=== PATIENT | male | born 1975 | race Caucasian/White ===

== ENCOUNTER 2017-05-20 14:34 | Emergency (ER) | payer SELFPAY ==
[~2017-05-20] VITALS: Ht 177.8 cm; Wt 100.0 kg
[2017-05-20 14:36] VITALS: BP 170/104; PULSE 121; RESP 16; TEMP 98.8; O2SAT 96
--- NOTE | 2017-05-20 14:41 | PD ---
HPI Chief Complaint: Musculoskeletal Complaint Time Seen by Provider: 14:40 Travel History International Travel<30 days: No Contact w/Intl Traveler<30days: No Traveled to known affect area: No History of Present Illness HPI 42-year-old male presents for specimen for evaluation of bilateral foot pain. Patient states that he has history of gout and this is very similar to previous exacerbations. Recalls no injury. Pain began yesterday but today it is severe. She states it's primarily around the first MCP of each foot and radiates to the plantar surface. Pain is made out of 10. No fever or chills. No other symptoms to report. PFSH Past Medical History Gout: Yes Social History Alcohol Use: No Tobacco Use: No Substance Use: No Allergies-Medications (Allergen,Severity, Reaction): Coded Allergies: No Known Allergies (Unverified , 05/20/17) Reported Meds & Prescriptions Reported Meds & Active Scripts Active Naproxen 500 Mg Tab 500 Mg PO BID PRN Review of Systems Except as stated in HPI: all other systems reviewed are Neg Physical Exam Narrative GENERAL: Well-nourished, well-developed male patient, no acute distress SKIN: Focused skin assessment warm/dry. Mild erythema around the first MCP joint of the right foot. No induration. No fluctuation. Tenderness with palpation of the bilateral first MCP joints. HEAD: Normocephalic. EYES: No scleral icterus. No injection or drainage. NECK: Supple, trachea midline. No JVD or lymphadenopathy. CARDIOVASCULAR: Tachycardic rate and rhythm without murmurs, gallops, or rubs. RESPIRATORY: Breath sounds equal bilaterally. No accessory muscle use. MUSCULOSKELETAL: No cyanosis, or edema. BACK: Nontender without obvious deformity. No CVA tenderness. Data Data Last Documented VS Vital Signs Date Time Temp Pulse Resp B/P (MAP) Pulse Ox O2 Delivery O2 Flow Rate FiO2 05/20/17 14:36 98.8 121 16 170/104 (126) 96 Orders Orders Ketorolac Inj (Toradol Inj) (05/20/17 14:45) Ed Discharge Order (05/20/17 14:45) [facility] Medical Decision Making Medical Screen Exam Complete: Yes Emergency Medical Condition: Yes Medical Record Reviewed: Yes Differential Diagnosis Pseudogout versus acute gout arthritis versus cellulitis versus osteoarthritis Narrative Course 42-year-old male presents for evaluation of bilateral foot pain consistent with previous gout exacerbations. Patient is tachycardic but he isn't quite amount of pain. With history of gout with similar symptoms, further emergent workup is not indicated at this time. Patient is treated with Toradol. Upon reassessment, patient's heart rate has decreased to 104 bpm. He states his pain is much improved. He'll be started on naproxen outpatient and encouraged follow-up with primary care provider. He agrees to return immediately with any acute worsening of symptoms. Diagnosis Primary Impression: Bilateral foot pain Additional Impression: Exacerbation of gout Referrals: Primary Care Physician Patient Instructions: General Instructions, Gout (ED) Additional Instructions: Elevate to reduce pain Follow-up with a primary care provider Return immediately to the emergency department with any acute worsening symptoms Med/Other Pt SpecificInfo: Prescription(s) given Scripts Naproxen (Naproxen) 500 Mg Tab 500 MG PO BID Y for PAIN SCALE 1 TO 10, #30 TAB 0 Refills Prov: Ann Marie Patricia 05/20/17 Disposition: 01 DISCHARGE HOME Condition: Stable Ann Marie Patricia May 20, 2017 14:41
[2017-05-20] MEDS ORDERED: KETOROLAC TROMETHAMINE 60 MG/2 ML (IM) VIAL IM ONE (14:45)
[2017-05-20] MEDS ORDERED: NAPR500T2 PO (14:47)
== END 2017-05-20 15:34 | disposition home or self-care (01) ==
LOC: PHEFT 14:34
DX: M79.672 Pain in left foot (principal); M79.671 Pain in right foot; M10.9 Gout, unspecified
CPT/HCPCS: 96372; 99284; J1885

== ENCOUNTER 2017-08-17 10:46 | Emergency (ER) | payer SELFPAY ==
[~2017-08-17] VITALS: Ht 177.8 cm; Wt 100.7 kg
[~2017-08-17 10:46] MED LIST: NAPR500T2 PO
[2017-08-17 10:53] VITALS: BP 171/98; PULSE 107; RESP 16; TEMP 98.7; O2SAT 96
[2017-08-17] MEDS ORDERED: ALPR.5 PO (10:59)
[2017-08-17] MEDS ORDERED: AZIT250T3 PO (11:27)
[2017-08-17] MEDS ORDERED: BENZ100 PO (11:27)
[2017-08-17] MEDS ORDERED: PRED20 PO (11:27)
[2017-08-17] MEDS ORDERED: ALBUAER3 INH (11:27)
--- NOTE | 2017-08-17 11:28 | PD ---
HPI Chief Complaint: Cold / Flu Symptoms Time Seen by Provider: 11:09 Travel History International Travel<30 days: No Contact w/Intl Traveler<30days: No Traveled to known affect area: No History of Present Illness HPI This is a 42-year-old male here with productive cough 2 weeks. He reports history of bronchitis and sent similar symptoms in the past. He reports occasional wheezing with coughing episodes. Denies chest pain or persistent shortness of breath. Symptom severity is moderate. No aggravating factors. Albuterol inhaler slightly improved symptoms. PFSH Past Medical History Medical History: Denies Significant Hx Diminished Hearing: No Gout: Yes Hypertension: Yes Immunizations Current: Yes Tetanus Vaccination: > 5 Years Influenza Vaccination: No Past Surgical History Surgical History: No Previous Surgery Social History Alcohol Use: Yes (6pk daily) Tobacco Use: No Substance Use: No Allergies-Medications (Allergen,Severity, Reaction): Coded Allergies: No Known Allergies (Unverified , 08/17/17) Reported Meds & Prescriptions Reported Meds & Active Scripts Active Reported Xanax (Alprazolam) 0.5 Mg Tab 0.5 Mg PO HS PRN Review of Systems Except as stated in HPI: all other systems reviewed are Neg General / Constitutional: No: Fever Eyes: No: Visual changes HENT: No: Headaches Cardiovascular: No: Chest Pain or Discomfort Respiratory: Positive: Cough, Wheezing Gastrointestinal: No: Abdominal Pain Genitourinary: No: Dysuria Musculoskeletal: No: Pain Skin: No Rash Neurologic: No: Weakness Physical Exam Narrative GENERAL: 42-year-old male in no distress. Patient well-appearing. SKIN: Warm and dry. HEAD: Normocephalic. EYES: No injection or drainage. NECK: Supple CARDIOVASCULAR: Regular rate and rhythm. No murmur appreciated RESPIRATORY: Breath sounds equal bilaterally. No accessory muscle use. Rhonchorous cough GASTROINTESTINAL: Abdomen soft, non-tender, nondistended. MUSCULOSKELETAL: No cyanosis, or edema. BACK: Nontender without obvious deformity. No CVA tenderness. Data Data Last Documented VS Vital Signs Date Time Temp Pulse Resp B/P (MAP) Pulse Ox O2 Delivery O2 Flow Rate FiO2 08/17/17 10:53 98.7 107 16 171/98 (122) 96 MDM Medical Decision Making Medical Screen Exam Complete: Yes Emergency Medical Condition: Yes Differential Diagnosis Bronchitis, pneumonia, influenza Narrative Course The 42-year-old male here with productive cough 2 weeks. He denies fevers chills. He is well-appearing. Vital signs are stable. He has a rhonchorous cough on exam. He'll be treated for bronchitis. Diagnosis Primary Impression: Bronchitis Referrals: Primary Care Physician Departure Forms: Tests/Procedures, Work Release Enter return to work date: Aug 20, 2017 Additional Instructions: Medication as directed. Rest and stay well hydrated. Follow-up with her primary doctor. Scripts Benzonatate (Tessalon Perles) 100 Mg Cap 200 MG PO TID Y for COUGH, #14 CAP 0 Refills Prov: Amena Ruiz 08/17/17 Albuterol 8.5 GM Inh (Proair Hfa 8.5 GM Inh) 90 Mcg/Act Aer 2 PUFF INH Q4-6H Y for SHORTNESS OF BREATH, #1 INHALER 0 Refills 108 mcg/actuation Prov: Amena Ruiz 08/17/17 Prednisone (Prednisone) 20 Mg Tab 40 MG PO DAILY, #10 TAB 0 Refills Take 40 mg (2 tablets) daily for 5 days Prov: Amena Ruiz 08/17/17 Azithromycin (Azithromycin) 250 Mg Tab 250 MG PO DIRECTED for Infection, #6 TAB 0 Refills Take 2 tabs (500 mg) on day 1 then 1 tab daily x 4 days. Prov: Amena Ruiz 08/17/17 Disposition: 01 DISCHARGE HOME Condition: Stable Amena Ruiz Aug 17, 2017 11:28
== END 2017-08-17 11:30 | disposition home or self-care (01) ==
LOC: PHEFT 10:46
DX: J40 Bronchitis, not specified as acute or chronic (principal)
CPT/HCPCS: 99283